=== PATIENT | male | born 1980 | race Two or more races ===

== ENCOUNTER 2025-06-15 17:20 | Emergency (ER) | payer MEDICAID ==
[~2025-06-15] VITALS: Ht 175.3 cm; Wt 100.9 kg
[2025-06-15 17:23] VITALS: BP 138/94; PULSE 70; RESP 18; TEMP 97.9; O2SAT 97
[2025-06-15] MEDS: KETOROLAC TROMETH 60MG/2ML VIAL IM ONE (19:20)
[2025-06-15] MEDS: ONDANSETRON ODT 4 MG TAB PO ONE (19:20)
[2025-06-15] MEDS ORDERED: SUMA25TA2 PO (19:24)
--- NOTE | 2025-06-15 19:24 | ED.PDOC ---
HPI (NEURO) HPI Comments 45-year-old male presents to the ED chief complaint headache x2 weeks. Patient reports headache behind right eye and right shinto area intermittently x2 weeks. Notes no aggravating factors. [id number] Tylenol or Motrin which helps the pain. Describes pain as throbbing pressure type 8/10 on pain scale. Reports no related symptoms. He denies nausea, vomiting, vision changes, numbness, weakness, known injury, headache with exertion or worst headache of his life. Chief Complaint: Headache Time Seen by MD: 18:24 Reviewed Notes: Nurses Notes, Medications, Allergies Information Source: Patient Mode of Arrival: Ambulatory Past Medical History PAST MEDICAL HISTORY: Denies Surgical History: Denies all surgeries Family History Family History: Reviewed,noncontributory to illness Social History Smoker: Non-Smoker Alcohol: Denies ETOH Use Drugs: Denies Drug Use All Other Systems: Reviewed and Negative (see hpi) Physical Exam General Appearance: No Apparent Distress, Normal HEENT: Normal ENT Inspection, Pharynx Normal, TMs Normal Neck: Full Range of Motion, Non-Tender Respiratory: Lungs Clear, No Respiratory Distress, Normal Breath Sounds Cardiovascular: No Edema, No JVD, No Murmur, No Gallop, Normal Peripheral Pulses, Regular Rate/Rhythm Breast Exam: Deferred Gastrointestinal: No Organomegaly, Non Tender, No Pulsatile Mass, Normal Bowel Sounds, Soft Genitalia: Deferred Pelvic: Deferred Rectal: Deferred Extremities: Normal capillary refill, Normal range of motion, Non-tender, No pedal edema Musculoskeletal : Apperance: Normal Neurologic: Alert, No Motor Deficits, Normal Affect, Normal Mood, No Sensory Deficits Cerebellar Function: Normal Reflexes: NOT DONE Skin: Dry, Normal Color, Warm Lymphatic: No Adenopathy Was a procedure done? Was a procedure done?: No Differential Diagnosis (SZ) Headache: Epidural Hemorrhage, Intracerebral Hemorrhage, Subarachnoid Hemorrhage, Subdural Hemorrhage, Post-Traumatic, Sinusitis, Trigeminal Neuralgia X-Ray, Labs, Meds, VS Vital Signs Date Time Temp Pulse Resp B/P (MAP) Pulse Ox O2 Delivery O2 Flow Rate FiO2 06/15/25 17:23 97.9 70 18 138/94 97 97.9 X-Ray, Labs, Meds, VS Comment Patient reports improvement with medications given requesting discharge at this time. Script trial of sumatriptan. Advised to rest increase p.o. fluids with electrolytes. Light diet. Monitor for the next 24-48 hours avoid visual stimuli such as computer or cell phone use to avoid headaches. Avoid vigorous activity. Return to the ER for nonstop vomiting, numbness, weakness, slurred speech, lethargy, or any concerning symptoms. Parents indicates understanding and agrees with discharge plan of care Time of 1ST Reevaluation: 18:24 Reevaluation 1ST: Unchanged Time of 2ND Reevaluation: 19:21 Reevaluation 2ND: Improved Patient Education/Counseling: Diagnosis, Treatment, Need For Follow Up Family Education/Counseling: No Family Present Departure 1 Departure Time of Disposition: 19:21 Impression: Primary Impression: Headache Disposition: 01 HOME / SELF CARE / HOMELESS Condition: Stable e-Prescriptions Sumatriptan Succinate (Sumatriptan Succinate) 25 Mg Tab 25 MG PO DAILY PRN for 3 Days, #6 TAB Take one tablet by mouth at onset of headache. May repeat one more tablet 1-2 hours if headache continues. Prov: BLAKE SEGAL 06/15/25 Discharged With: Self Critical Care Note Critical Care Time?: No Stability Stability form required: BLAKE Cross Jun 15, 2025 19:24
== END 2025-06-15 19:36 | disposition home or self-care (01) ==
LOC: ER 17:20
DX: R51.9 Headache, unspecified (principal); H57.11 Ocular pain, right eye
CPT/HCPCS: 96372; 99284; J1100; J1885; Q0162